=== PATIENT | female | born 2005 | race Caucasian/White ===

== ENCOUNTER 2023-09-12 04:50 | Observation (INO) ==
--- NOTE | 2023-09-12 05:05 | Emergency Department Note ---
Impression & Plan Recurrent seizures ED Provider Note NAME: JULIEN JOINER AGE: 18 SEX: F : 2005 ARRIVES VIA: Ambulance INFORMANT: [Patient][roommate, ems] ED PROVIDER(S): [Roosevelt Yi MD] CHIEF COMPLAINT: Seizure HISTORY OF PRESENT ILLNESS: The patient is a 18-year-old female who was in the ED earlier for a seizure. Neurology was consulted and no antiseizure meds were recommended. The patient presents back by ambulance for a second seizure. As per the roommate, the patient was screaming and making strange noises. The roommates noticed some shaking, especially the right arm was shaking. Afterwards, she was confused but now seems more back to baseline. Patient did not lose urinary continence but did bite the right side of her tongue. The patient denies any recent illness or cough or congestion. She cannot remember what happened prior to arrival. PMHx/PSHx/Social Hx: See Below PHYSICAL EXAM: GENERAL: Patient is in no acute distress. HEENT: No acute trauma, normocephalic atraumatic, mucous membranes moist, no na javi congestion. There is a subtle superficial bite to the right posterior tongue. NECK: No stridor, no adenopathy, no meningismus, trachea is midline. LUNGS: Clear to auscultation bilaterally, no wheeze, no rhonchi, breath sounds equal. HEART: Without murmurs gallops or rubs, regular rate and rhythm. ABDOMEN: Soft, nontender, no peritonitis. EXTREMITIES: No cyanosis, full range of motion of all the joints without pain or difficulty. NEUROLOGIC: Awake and alert, amnestic of the events earlier tonight. No acute motor or sensory deficits, no focal weakness. SKIN: No jaundice, no diaphoresis. DIFFERENTIAL DIAGNOSIS: Seizure, electrolyte imbalance, anemia, dysrhythmia, among others. EMERGENCY DEPARTMENT PROCEDURES: MEDICAL DECISION MAKING: The patient presents with a second seizure in a very short timeframe. With the first seizure earlier, no antiseizure meds had been initiated. Patient's ECG from earlier showed a normal sinus rhythm. Her laboratory workup had returned basically unrevealing. A prolactin level was ordered. A CT of the brain was ordered. Both the prolactin level and CT imaging results are pending. The patient had seizure precautions taken. She was given 2 g of IV Keppra. I did speak with Dr. Briceno of neurology, with the second seizure, admission is warranted. Patient will require a neurology consult, MRI, EEG. I spoke with the patient and her roommate, I spoke with the on-call hospitalist. Case management has been involved. Prior/Outside records/notes reviewed: Today's EMS notes describing her presentation and the transport to this ED. Imaging/x-ray results per my interpretation: Chronic Medical/Social conditions affecting care: College student. Care/Management discussed with: [facility] neurology-Dr. Briceno, case management and the on-call hospitalist. Level of care consideration(s): After review of the information above and other included data: --I believe the patient requires escalation of care to admission DISPOSITION: Admission with neurology consult Past Med/Surg History Medical History Seizure Chronic constipation Family History Mother Hypertension Grandmother Hypertension Social History Smoking Status: Never smoker Do You Dip or Chew Tobacco: No; Hx Alcohol Use: No Hx Substance Use: No Preferred Language: Slovak Feels Safe at Home: Yes Allergies Allergies Allergy/AdvReac Type Severity Reaction Status Date / Time No Known Allergies Allergy Verified 09/12/23 01:08 Home Meds Home Medications Medication Instructions Recorded Confirmed ibuprofen 200 mg tablet 400 mg PO DIRECTED PRN 09/11/23 09/12/23 PAIN/CRAMPS Results & Data (ED) Vital Signs Vital Signs - 24 hr 09/12/23 04:58 09/12/23 05:13 Temperature 36.8 C Temperature Source Oral Pulse Rate 98 H 83 Pulse Rhythm Regular Pulse Strength Normal Respiratory Rate 16 Respiratory Effort / Characteristics Non-Labored Spontaneous Respiratory Depth Normal Respiratory Pattern Regular Blood Pressure 121/78 Blood Pressure Mean 92 Blood Pressure Position Sitting Pulse Oximetry 100 Oxygen Delivery Method Room Air Sepsis Recent Fever Within 48 Hours No Sepsis New/Unexplained Change in Mental Status N/A Sepsis Action Taken by Nursing No Action Required Home Medications Current Medication List: was personally reviewed by me Administered Medications Discontinued Medications Levetiracetam (Levetiracetam 500 Mg/5 Ml Vial) 2,000 mg IV NOW STA Stop: 09/12/23 05:00 Last Admin: 09/12/23 05:35 Dose: 2,000 mg Documented By: ALFA Discharge Plan Visit Data Chief Complaint: Seizure ED Provider: Roosevelt Yi Discharge Problem: Recurrent seizures Patient Disposition: Admitted As Inpatient Condition: Fair Forms Stand Alone Forms: [facility] Prescriptions Prescriptions: No Action ibuprofen 200 mg Tablet 400 mg PO DIRECTED PRN (Reason: PAIN/CRAMPS) Referrals Referrals: [facility] [Primary Care Provider] -
[2023-09-12] MEDS: levETIRAcetam 500 MG/5 ML VIAL IV STA (05:35)
--- NOTE | 2023-09-12 05:54 | History & Physical Report ---
Date of Service September 12, 2023 Assessment & Plan (1) Recurrent seizures: Plan: 18yo female with history of seizure, last being in 2015 presenting with recurrent seizures today - seem to be tonic-clonic in nature with brief post- ictal period. No fevers, trauma or recent illness. She has been loaded with Keppra 2gm IV -Admit to medical -Prolactin level pending -Obtain UDS and Urine -Maintain seizure precautions -Neurology consultation appreciated -Obtain EEG - awake/drowsy -Obtain MRI brain -Repeat labs in AM - BMP, CBC History of Present Illness Chief Complaint: seizure Primary Care Provider: [facility] Deana Baltazar is a 18yo female with remote history of seizure disorder (last seizure in 2014), not on any medications presenting with a seizure. Patient had a seizure earlier yesterday while at class. She reports having a dull frontal headache and an aura in which she was hyper aware of her surroundings. Then she woke up with medical personnel surrounding her. Witnesses state that she had a tonic-clonic seizure while sitting in the chair with post-ictal period. She was brought to the ER. Laboratory workup unremarkable so she was discharged home. She returned later in the day with complaint of chest pain, reproducible and made worse with movement and deep breathing. She had an unremarkable workup including EKG, troponin and CXR. Pain thought to be musculoskeletal due to her recent seizure. She was ultimately discharged home. She returned later in the night after having another seizure at home. Event witnessed by her roommate - patient was making unusual noises, screaming and her right arm was shaking. This lasted approximately 30 minutes where she was not fully aware of her surroundings. EMS was called and she was brought to the ER. Mildly post-ictal upon arrival. Patient given 2gm of Keppra. Presently she feels well. No acute complaints. Denies recent illness, fever, chills, neck pain or stiffness. Denies chest pain, palpitations, abdominal pain, nausea or vomiting. Reports that she doesn't sleep a lot and could be eating better but overall feels that she is doing ok. ER Course: Keppra 2gm IV Allergies Allergy/AdvReac Type Severity Reaction Status Date / Time No Known Allergies Allergy Verified 09/12/23 01:08 Home Medications Medication Instructions Recorded Confirmed Type ibuprofen 200 mg tablet 400 mg PO DIRECTED PRN 09/11/23 09/12/23 History PAIN/CRAMPS Past Med/Surg History Medical History Seizure Chronic constipation Family History Mother Hypertension Grandmother Hypertension Social History Smoking Status: Never smoker Do You Dip or Chew Tobacco: No; Hx Alcohol Use: No Hx Substance Use: No Preferred Language: Estonian Feels Safe at Home: Yes Review of Systems Review of Systems: All systems reviewed & are unremarkable except as noted in HPI & below Physical Exam Physical Exam: General: patient resting comfortably, NAD, non-toxic in appearance, AA&O x 4 Skin: warm, dry, intact, no rashes or lesions HEENT: NC/AT, PERRL, EOMI, anicteric sclera, conjunctiva without injection, external ear normal to inspection and nontender, nares patent, moist mucus membranes, dentition intact, no oropharyngeal lesions, neck supple, trachea midline, no LAD, no thyromegaly, no JVD Heart: +S1/S2, regular, no m/r/g Lungs: equal air entry bilaterally, no rales/rhonchi/wheezes Abd: +BS, soft, NT/ND, no masses/organomegaly/ascites Ext: warm, 2+ pulses in UE/LE bilaterally, no clubbing/cyanosis or edema Neuro: nonfocal, patient AA&O x 4, speech intact, no facial droop, moving all extremities on command with equal strength 5/5 Results & Data Results & Data Vital Signs (Past 12 Hours) Vital Signs Temp Pulse Resp BP Pulse Ox O2 Del Method 09/12/23 05:13 36.8 C 83 16 121/78 100 Room Air 09/12/23 04:[address] Head performed - official read pending. PG Care Time/CCT Total # of Minutes Spent Total Time Spent with Patient: Total time spent is greater than 50% in coordination of care (as documented) at patient's floor/unit and/or counseling patient: Coding Level of Care Code 35433 INT INP/OBS CARE 2/55MIN Diagnoses Recurrent seizures G40.909
--- NOTE | 2023-09-12 06:46 | CT Scan Report ---
HEAD CT NONCONTRAST CT DOSE: 547.75 mGy.cm HISTORY: seizure TECHNIQUE: Multiaxial CT images of the head were performed without the use of intravenous contrast. A utomated exposure control was utilized for this study. A dose lowering technique was utilized adheri ng to the principles of ALARA. Comparison: None. Findings: The paranasal sinuses and mastoid air cells are clear. The calvarium and skull base are int act. The ventricles and sulci are within normal limits. There is no mass, hematoma, midline shift, or acute infarct. Impression: No acute intracranial abnormality. ACT 112: Negative or not required by law. Electronically signed by: Amrit Deras M.D. 09/12/2023 6:43 AM
[2023-09-12] MEDS ORDERED: ONDANSETRON INJ 2 MG/ML 2 ML VIAL IV PRN (07:39)
[2023-09-12] MEDS ORDERED: ACETAMINOPHEN 325 MG TAB PO PRN (07:39)
--- NOTE | 2023-09-12 07:55 | Magnetic Resonance Report ---
Brain MRI WITH AND WITHOUT CONTRAST HISTORY: multiple seizures TECHNIQUE: Multiplanar multisequence MRI of the brain was performed both before and after the intrave nous administration of contrast. COMPARISON STUDY: Head CT 09/12/2023. FINDINGS: There are no areas of restricted diffusion to suggest acute infarction. The midline structu res are intact. The paranasal sinuses are clear. The mastoid air cells are clear. The ventricles and sulci are within normal limits for age. There is no mass, hematoma, midline shift. The major vascular flow-voids at the skull base are well maintained. Postcontrast sequences show no areas of abnormal e nhancement. The temporal lobes are symmetric and demonstrate a normal signal intensity. No evidence f or davila matter heterotopia. IMPRESSION: No acute intracranial abnormality. ACT 112: Negative or not required by law. Electronically signed by: Amrit Deras M.D. 09/12/2023 7:53 AM
--- NOTE | 2023-09-12 10:17 | Neurology Consultation ---
Date of Consultation September 12, 2023 Assessment & Plan (1) Epilepsy: (2) Recurrent seizures: (3) Paroxysmal kinesigenic dyskinesia: Plan This patient has a history of seizure disorder likely epilepsy starting at 6 months of age. She has not been on anticonvulsants since 2006 although had a breakthrough seizure in 2015. She continues to have auras but these auras had markedly picked up in frequency over the last 2 months. She has now had 2 generalized tonic-clonic seizures in the last 24 hours. There was some sleep deprivation but no other abnormalities were noted on laboratory testing or history. MRI of the brain with and without contrast was unremarkable/normal. EEG this morning was unremarkable (see separate report) awake and drowsy The patient has a family history of paroxysmal Kinesigenic dyskinesia in her younger brother but she herself has symptoms consistent with this condition. The drug of choice for this condition is carbamazepine. Recommendations: 1. For now, keep levetiracetam 500 mg p.o. twice daily. 2. As an outpatient I will likely switch her gradually to carbamazepine instead of levetiracetam. Hopefully carbamazepine will help prevent seizures as well as her dyskinetic symptoms 3. When medically stable I will see as an outpatient in 1 to 2 weeks with PA. Overall, I spent a total of 90 minutes with this case including review of records, review of MRI films, direct evaluation of the patient at bedside, and discussion of the case with the patient at bedside and Dr. Luis, including differential diagnosis and treatment options. History of Present Illness Reason for Consultation: Patient is a 18-year-old, who I was asked to see at the request of Dr. Lees, for neurologic consultation regarding seizures. Requesting Physician: Dr. Lees Attending Physician: Toni Luis MD History of Present Illness This patient has a history of seizures starting at age 6 months through age 2- 1/2 years. She was on oxcarbazepine for control. In 2005 she was taken off the medication and did well until 2014 when she had her next seizure. She was sitting in class and had a generalized tonic-clonic event. She was not put back on daily medication. I believe she had a form of lorazepam to use as needed. I have no details regarding her seizure type, test results or other information. Interestingly, the patient tells me that she gets auras prior to her seizures. She continued to have auras after 2014 occurring at a rate of about 4 or 5 times a year. These auras consisted of a "wave" coming across her head feeling "weird". This is a lot like a lightheadedness but she tells me that she is very aware of her surroundings during this time. It last typically a couple of minutes and then resolves. There is no abnormal movements, alterations in consciousness or other issues (just aura). She tells me that over the last 2 months she has had 10 auras. She has not been ill and was planning to see a physician for this. Also of interest is the patient has an 18-year-old brother with paroxysmal Kinesio genic dyskinesias. He is on carbamazepine. The patient tells me that she will get posturing and dyskinesias with certain movements such as quickly standing up or with running. When she rests for a minute or 2 it goes away. She claims she has this about 3 times a month but has never had the specific genetic testing. Neither parent or other relatives, according to the patient, has the condition. The patient stayed up till 5 in the morning overnight this Monday, September 09. On September 10 she stayed up till midnight watching the football game. She was not ill. 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 She felt well during this although she had a typical aura that lasted 1 or 2 minutes followed by a bifr ontal headache. She then went to class at 1600 on September 11. Within a few minutes she must of had a generalized tonic-clonic seizure followed by postictal state. The next thing she knew she was in class and then the room was cleared and there were medical personnel around her. She arrived to the emergency room at 1727 with a temperature of 36.7, pulse 94 and regular, respiratory rate 20, blood pressure 102/67, and O2 saturation 98%. She had some post event confusion which cleared up by the time she was in the ER. CBC and CHEM profile were unremarkable. She was improved and sent home. She arrived back in the emergency room around midnight because of some mild chest pain but was then discharged again. At 0400 the patient was asleep and roommates were awakened by noises and movemen ts. She has a roommate present with her today who stated that when she viewed the patient her right arm was jerking, her eyes were rolled up, and she was not responding well the jerking lasted about a minute and then she was confused and frightened for 20 to 30 minutes thereafter. And 512 blood pressure was 120/78, pulse 83 and regular, respirate 16, temperature 36.8, and O2 saturation 100%. She was given 2 g IV levetiracetam and has had no further spells or problems. She feels she is back to baseline now (999September 12) although her muscles are sore. Allergies Allergy/AdvReac Type Severity Reaction Status Date / Time No Known Allergies Allergy Verified 09/12/23 01:08 Home Medications Medication Instructions Recorded Confirmed Type ibuprofen 200 mg tablet 400 mg PO DIRECTED PRN 09/11/23 09/12/23 History PAIN/CRAMPS Patient History Medical History Seizure Chronic constipation Family History Mother Hypertension Grandmother Hypertension Social History (Updated 09/12/23 @ 10:15 by Dong Briceno MD) Smoking Status: Never smoker Do You Dip or Chew Tobacco: No; Hx Alcohol Use: No Hx Substance Use: No Preferred Language: Comoran Current Living Situation Comment: Guy with roommates current occupational status: student current occupation: [employer] major Feels Safe at Home: Yes Review of Systems Constitutional: no fever, no fatigue and no weakness Eyes: no diplopia, no eye pain and no worsening vision Ear, Nose, Mouth, Throat: no ear pain, no tinnitus, no hearing loss, no dizziness, no snoring, no hoarseness and no dysphagia Respiratory: no cough and no dyspnea Cardiovascular: no chest pain, no palpitations and no lightheadedness Gastrointestinal: no abdominal pain, no nausea and no vomiting Genitourinary: no dysuria, no urinary frequency and no urinary incontinence Musculoskeletal: + joint pain and + myalgia; no back pain , no neck pain and no radicular pain Integumentary: no rash and no lesions Neurologic: no gait abnormality, no localized weakness, no generalized weakness, no tingling, no numbness, no tremor(s), no abnormal movements, no head ache(s), no abnormal speech, no confusion and no memory loss Psychiatric: no depression, no irritability, no anxiety, no difficulty concentrating, no confusion and no hallucinations Endocrine: no fatigue and no flushing Hematologic / Lymphatic: no easy bleeding and no easy bruising Allergy / Immunological: no urticaria and no problem reported Exam (Neuro) Physical Exam: The patient is right-handed. The patient is awake, alert, and attentive. Speech is normal without any aphasia or dysarthria. Mentation and thought processes are intact, with full orientation and normal fund of knowledge. Mood and affect are normal and appropriate. Appearance and grooming are normal. Short and long-term memory are intact. The discs are sharp with positive venous pulsations bilaterally. There are no ex udates, hemorrhages, or blood vessel changes seen. Pupils are 4 mm bilaterally and reactive to light. Extraocular eye muscles are intact without nystagmus. Visual acuity and visual gold seem normal grossly to confrontation. There are no deficits to sensation in the face in all 3 distributions of the fifth cranial nerve bilaterally. Corneal reflexes are positive bilaterally. Facial strength and symmetry was normal bilaterally. Hearing seems intact grossly to voice and finger rub bilaterally. Palate moves well without asymmetry. There is normal sternocleidomastoid and trapezius strength bilat erally. Tongue is midline with good strength bilaterally. Neck has a full range of motion without discomfort. There are no cervical bruits bilaterally. There are no cranial or ocular bruits. Heart is without murmur. There is a regular rhythm and rate. Cervical, thoracic, and lumbar spine are nontender to palpation. Gait was not tested but stance sitting up in bed is normal With outstretched arms there is no drift. There are no resting, postural, or action tremors. There is no ataxia with finger to nose testing. There is good facility in the hands. No other abnormal involuntary movements are noted. Motor strength is 5/5 diffusely in the arms bilaterally including deltoids, biceps, triceps, brachioradialis, wrist flexors and extensors, hydroelectric operator, and intrinsic hand muscles. Motor strength is 5/5 diffusely in the legs bilaterally including hip flexors, quadriceps, hamstrings, gastrocnemius, tibialis anterior, tibialis posterior, and Peroneii muscles bilaterally. Toe extensors are normal and there is good bulk in the extensor digitorum brevis muscles bilaterally. The limbs have good tone without rigidity or spasticity. There is no atrophy noted in the muscles. Muscle bulk is normal, there is no tenderness to palpation, no myotonia to percussion, and no fasciculations seen. Sensory examination is intact to touch and pin throughout all 4 limbs diffusely. Reflexes are 2/4 in the biceps, triceps, brachioradialis, quadriceps, and Achilles tendons bilaterally. Toes are downgoing with plantar stimulation bilaterally. Peripheral pulses are present and of normal quality distally in all 4 limbs. There is no peripheral edema noted in the limbs. Results & Data Vital Signs (Past 12 Hours) Vital Signs Temp Pulse Pulse Resp BP Pulse Ox O2 Del Method 09/12/23 08:00 97 09/12/23 07:36 60 15 97 Room Air 09/12/23 07:30 96 09/12/23 07:15 98 09/12/23 06:30 98/66 L 09/12/23 06:30 75 34 H 95 09/12/23 06:00 72 18 108/68 96 09/12/23 05:42 84 20 118/84 100 09/12/23 05:30 92 H 24 100 09/12/23 05:13 36.8 C 83 16 121/78 100 Room Air 09/12/23 05:00 101 H 18 121/78 100 09/12/23 04:59 101 H 16 100 09/12/23 04:58 98 H PG Care Time/CCT Total # of Minutes Spent Total Time Spent with Patient: Total time spent is greater than 50% in coordination of care (as documented) at patient's floor/unit and/or counseling patient: Coding Level of Care Code 76118 IN/OBS CONSULT LVL 5,80M Diagnoses Epilepsy G40.909 Recurrent seizures G40.909 Paroxysmal kinesigenic dyskinesia G25.5 Time Spent (min) 90
--- NOTE | 2023-09-12 10:46 | Electroencephalogram ---
EEG Procedure Note Date of Service September 12, 2023 Start / End Times Start Time: 1014 End Time: [address] Lees History 18-year-old with history of epilepsy and 2 generalized tonic-clonic seizures within the last 24 hours, post levetiracetam loading dose 5 hours ago. Home Medication List Medication Instructions Recorded Confirmed Type ibuprofen 200 mg tablet 400 mg PO DIRECTED PRN 09/11/23 09/12/23 History PAIN/CRAMPS Inpatient Medication List Discontinued Medications Levetiracetam (Levetiracetam 500 Mg/5 Ml Vial) 2,000 mg IV NOW STA Stop: 09/12/23 05:00 Last Admin: 09/12/23 05:35 Dose: 2,000 mg Documented By: ALFA Description This is a 21 electrode EEG with a single channel dedicated to limited EKG. The electrodes were placed in accordance with the International 10-20 system. Interpretation The predominant background activity consists of a reasonably well modulated 10 Hz activity, of up to 50 mV in amplitude,seen symmetrically distributed over the posterior head regions bilaterally. This activity attenuates with eye-opening and other alerting procedures. Photic stimulation was performed and elicited no change in the background activity and no abnormal responses were seen. Hyperventilation was performed for three minutes with good effort and again no abnormalities were seen. A mild amount of muscle and movement artifact activity contaminated the recording, yet did not hinder interpretation to any significant degree. Throughout the waking portion of the recording, no focal abnormalities, abnormal slow activity, or potentially epileptogenic discharges were seen. The patient entered the drowsy state from time to time with no further activation. In summary, this EEG was normal during wakefulness and drowsiness. No focal abnormalities, potentially epileptogenic discharges, or abnormal slow activity was seen. Clinical Correlation The abscence of potentially epileptogenic activity does not exclude a seizure disorder, since interictally, EEGs can be normal. Clinical correlation is required. [facility] [place] Procedure Codes Indication for Procedure (1) Epilepsy: Neurology Neurology: 21140 EEG include record awake & drowsy
--- NOTE | 2023-09-12 15:05 | Discharge Summary ---
Date of Service September 12, 2023 Admission HPI Per Admitting Provider Deana Baltazar is a 18yo female with remote history of seizure disorder (last seizure in 2014), not on any medications presenting with a seizure. Patient had a seizure earlier yesterday while at class. She reports having a dull frontal headache and an aura in which she was hyper aware of her surroundings. Then she woke up with medical personnel surrounding her. Witnesses state that she had a tonic-clonic seizure while sitting in the chair with post-ictal period. She was brought to the ER. Laboratory workup unremarkable so she was discharged home. She returned later in the day with complaint of chest pain, reproducible and made worse with movement and deep breathing. She had an unremarkable workup including EKG, troponin and CXR. Pain thought to be musculoskeletal due to her recent seizure. She was ultimately discharged home. She returned later in the night after having another seizure at home. Event witnessed by her roommate - patient was making unusual noises, screaming and her right arm was shaking. This lasted approximately 30 minutes where she was not fully aware of her surroundings. EMS was called and she was brought to the ER. Mildly post-ictal upon arrival. Patient given 2gm of Keppra. Presently she feels well. No acute complaints. Denies recent illness, fever, chills, neck pain or stiffness. Denies chest pain, palpitations, abdominal pain, nausea or vomiting. Reports that she doesn't sleep a lot and could be eating better but overall feels that she is doing ok. ER Course: Keppra 2gm IV Principal Diagnosis seizures Discharge Exam General: patient resting comfortably, NAD, non-toxic in appearance, AA&O x 4 Skin: warm, dry, intact, no rashes or lesions HEENT: NC/AT, PERRL, EOMI, anicteric sclera, conjunctiva without injection, external ear normal to inspection and nontender, nares patent, moist mucus membranes, dentition intact, no oropharyngeal lesions, neck supple, trachea midline, no LAD, no thyromegaly, no JVD Heart: +S1/S2, regular, no m/r/g Lungs: equal air entry bilaterally, no rales/rhonchi/wheezes Abd: +BS, soft, NT/ND, no masses/organomegaly/ascites Ext: warm, 2+ pulses in UE/LE bilaterally, no clubbing/cyanosis or edema Neuro: nonfocal, patient AA&O x 4, speech intact, no facial droop, moving all extremities on command with equal strength 5/5 Discharge Data Allergies Allergy/AdvReac Type Severity Reaction Status Date / Time No Known Allergies Allergy Verified 09/12/23 01:08 Consultations 09/12/23 05:08 ED Decision to Admit Stat 09/12/23 05:38 Consult Neurology Routine Ordered Studies 09/12/23 04:59 CT head/brain wo con Stat 09/12/23 05:38 MRI Brain [MR brain seizure wo con] Routine Hospital Course (1) Recurrent seizures: 18yo female with history of seizure, last being in 2015 presenting with recurrent seizures today - seem to be tonic-clonic in nature with brief post- ictal period. No fevers, trauma or recent illness. She has been loaded with Keppra 2gm IV -Admit to medical -Prolactin level pending -Obtain UDS and Urine -Maintain seizure precautions -Neurology consultation appreciated -The patient has a family history of paroxysmal Kinesigenic dyskinesia in her younger brother but she herself has symptoms consistent with this condition. The drug of choice for this condition is carbamazepine. Recommendations: 1. For now, keep levetiracetam 500 mg p.o. twice daily. 2. As an outpatient I will likely switch her gradually to carbamazepine instead of levetiracetam. Hopefully carbamazepine will help prevent seizures as well as her dyskinetic symptoms 3. will see as an outpatient in 1 to 2 weeks with PA. Total Time Total Time Spent Total Time Spent (In Minutes): 32 Discharge Plan Discharge Items Patient Disposition: Home - Self-Care Reason For Visit: SEIZURE Discharge Diagnosis: seizure Condition on Discharge: Fair Activity: Resume your previous activity Non-emergency contact: Primary Care Provider Call non-emergency contact if: you have any medication questions Follow-up/Referrals: [place] [Primary Care Provider] - Diet: Regular Addtl Attending Provider Instructions: Followup with Neurology in 2 weeks. If you have a seizure: Ask friends and family members to learn how to manage a seizure. Also tell them to do the following if you have a seizure: Clear the area to prevent injury. Position you on a flat, carpeted surface, if possible. Dont try to restrain you. Dont put anything in your mouth. Turn you onto your side if you start to vomit. Keep track of the date and time the seizure started, how long it lasted, if you lost consciousness, a description of your body movements, what provoked the seizure (if known), and any injuries you suffered. Using a watch may help keep correct time of events. Stay with you until you regain consciousness. Call 911 if the seizure is longer than 5 minutes, if there are multiple seizu res, or if you don't start to wake up after the seizure stops. You'll will probably be confused and drowsy after the seizure. Rest until you feel recovered enough to continue your pre-seizure activity. Activities Following are some things to consider: Enjoy your normal activities. Most people with epilepsy lead normal lives. Don't do hazardous activities, such as mountain climbing or scuba diving. A seizure under these conditions could lead to a fatal accident. Many other activities can be very dangerous if you were to have a seizure. If you are on a ladder or roof or operating heavy equipment or sharp tools, you could be seriously injured. Talk with your healthcare provider about any activities you are unsure of. Don't swim alone or take part in other similar activities without others nearby. No driving. Pending Studies at Discharge: No Stand-Alone Forms: My [facility], Smoking Cessation Medications and DC Order Prescriptions: New levetiracetam [Keppra] 500 mg tablet 500 mg PO BID Qty: 60 0RF Continued ibuprofen 200 mg Tablet 400 mg PO DIRECTED PRN (Reason: PAIN/CRAMPS) Discharge Orders: Discharge Order (Routine); Ordered 09/12/23 Ordered By: Toni Luis Admission Data Admit Date/Time: 09/12/23 05:38 Attending Provider: Niecy Lees Admit Provider: Niecy Lees Primary Care Provider: [facility] Other Providers: Dong Briceno; Niecy Lees Other Interventions: Discharge Summary Assessment (RN) Last Done: 09/12/23 15:39 Coding Level of Care Code INP/OBS EV SAME DAY LV 3,85MIN Diagnoses Recurrent seizures G40.909
== END 2023-09-12 15:41 | disposition home or self-care (01) | DRG 101 ==
LOC: SUATTDRO → ED 04:50 → EDINP 05:38 → INTOOBSV 05:38 → EDINP 07:39
DX: R56.9 Unspecified convulsions; Z82.0 Family history of epilepsy and other diseases of the nervous system; Z86.69 Personal history of other diseases of the nervous system and sense organs; E87.6 Hypokalemia; G40.909 Epilepsy, unspecified, not intractable, without status epilepticus; G25.5 Other chorea; K59.09 Other constipation; R07.2 Precordial pain; G24.8 Other dystonia